=== PATIENT | male | born 1985 | race Caucasian/White ===

== ENCOUNTER 2017-06-30 07:24 | Emergency (ER) | payer SELFPAY ==
[~2017-06-30] VITALS: Ht 170.2 cm; Wt 93.0 kg
[2017-06-30 08:58] VITALS: BP 151/101
== END 2017-06-30 09:57 | disposition home or self-care (01) ==
LOC: ER 07:24
DX: J03.80 Acute tonsillitis due to other specified organisms (principal); B97.89 Other viral agents as the cause of diseases classified elsewhere